=== PATIENT | male | born 1975 | race Caucasian/White ===

== ENCOUNTER 2018-02-02 12:42 | Emergency (ER) | payer BC ==
[2018-02-02 12:56] VITALS: TEMP 98.4; BMI 23.7
[2018-02-02] MEDS ORDERED: ONDANSETRON 4 MG/2 ML VIAL IVPUSH ONE (13:26)
[2018-02-02] MEDS ORDERED: FAMOTIDINE 20 MG/50 ML IVPB 20 MG/50 ML MG IVPB ONE ×2 (13:26→13:50)
[2018-02-02] MEDS ORDERED: morphine CARPU-JECT 4 MG/1 ML DISP.SYRIN IVPUSH ONE ×3 (13:26→16:26)
--- NOTE | 2018-02-02 13:37 | PDOC ---
History of Present Illness - General Chief Complaint: Chest Pain Stated Complaint: CHEST PAIN Time Seen by Provider: 02/02/18 13:04 - History of Present Illness Initial Comments: 02/02/18 13:27 42-year-old male with a history of anxiety presents to the emergency Department with 10 out of 10 pleuritic chest pain since waking up this morning. Patient reports she was in his usual state of health last night. He states this morning his 11lb cat was walking on his chest as she usually does, but today, she caused so much pain, it woke him up at 8am. He reports since then, the pain has been constant and he reports associated difficulty breathing due to the pain. He notes standing up as an alleviating factor and sitting down as a trigger for the pain. Pt reports feeling like he will pass out about 1 hour ago due to pain , but denies LOC. He reports similar pain one year ago which she states was diagnosed as "freak acid reflux." No treatments tried. Pt had a ?meckels diverticulum surgery 1 month ago and excision of a R axillary cyst 9 days ago at [facility]. Denies trauma. Denies fevers, chills, N/V/D, abd pain, headache , focal weakness or numbness. Past History - Past Medical History Allergies/Adverse Reactions: Allergies Allergy/AdvReac Type Severity Reaction Status Date / Time hydromorphone HCl Allergy Verified 02/02/18 12:43 [From Dilaudid] Home Medications: Ambulatory Orders Alprazolam [Xanax] 0.25 mg PO ASDIR PRN 04/23/16 Cephalexin [Keflex] 500 mg PO Q6H 02/02/18 Pantoprazole Sodium [Protonix -] 40 mg PO ONCE 02/02/18 Sulfamethoxazole/Trimethoprim [Bactrim Ds Tablet] 1 each PO BID 10 Days #20 tablet 02/02/18 COPD: No GI Disorders: Yes (MERKELS DIVERTICULUM) Psychiatric Problems: Yes (ANXIETY) - Surgical History Appendectomy: Yes GI Surgery: Yes (SMALL BOWEL RESECTION) - Suicide/Smoking/Psychosocial Hx Smoking History: Former smoker Have you smoked in the past 12 months: No Number of Cigarettes Smoked Daily: 2 If you are a former smoker, when did you quit?: OVER 1 YEAR AGO Information on smoking cessation initiated: No 'Breaking Loose' booklet given: 10/21/17 Hx Alcohol Use: No Drug/Substance Use Hx: No Substance Use Type: None Review of Systems - Review of Systems Comments:: 02/02/18 13:37 GENERAL/CONSTITUTIONAL: No fever or chills. No weakness. +lightheadedness HEAD, EYES, EARS, NOSE AND THROAT: No change in vision. No ear pain or discharge. No sore throat. GASTROINTESTINAL: No nausea, vomiting, diarrhea or constipation. GENITOURINARY: No dysuria, frequency, or change in urination. CARDIOVASCULAR: + chest pain and shortness of breath. RESPIRATORY: No cough, wheezing, or hemoptysis. MUSCULOSKELETAL: No joint or muscle swelling or pain. No neck or back pain. SKIN: No rash NEUROLOGIC: No headache, vertigo, loss of consciousness, or change in strength/ sensation. ENDOCRINE: No increased thirst. No abnormal weight change. HEMATOLOGIC/LYMPHATIC: No anemia, easy bleeding, or history of blood clots. ALLERGIC/IMMUNOLOGIC: No hives or skin allergy. *Physical Exam - Vital Signs Last Vital Signs Temp Pulse Resp BP Pulse Ox 98.4 F 83 18 138/83 96 02/02/18 12:42 02/02/18 12:42 02/02/18 12:42 02/02/18 12:42 02/02/18 12:42 - Physical Exam Comments: 02/02/18 13:48 GENERAL: Awake, alert, and fully oriented, in no acute distress HEAD: No signs of trauma EYES: PERRLA, EOMI, sclera anicteric, conjunctiva clear ENT: Auricles normal inspection, hearing grossly normal, nares patent, oropharynx clear without exudates. Moist mucosa NECK: Normal ROM, supple, no lymphadenopathy, JVD, or masses LUNGS: Breath sounds equal, clear to auscultation bilaterally. No wheezes, and no crackles HEART: Regular rate and rhythm, normal S1 and S2, no murmurs, rubs or gallops. + reproducible mid sternal ttp ABDOMEN: Soft, nontender, normoactive bowel sounds. No guarding, no rebound. No masses EXTREMITIES: Normal range of motion, no edema. No clubbing or cyanosis. No cords, erythema, or tenderness NEUROLOGICAL: Normal speech, cranial nerves intact, negative pronator drift, 5/ 5 strength in all 4 extremities, normal sensation to light touch in all 4 extremities, normal cerebellar exam, normal gait, normal reflexes and tone SKIN: Warm, Dry, normal turgor, no rashes or lesions noted. Heart Score/ECG Review #1 02/02/18 13:49 Twelve-lead EKG was performed and reviewed by me. Normal sinus rhythm, rate 93. Normal axis. Wavy baseline but no visible ST elevations or T-wave inversions. #2 02/03/18 07:38 Twelve-lead EKG was performed and reviewed by me. Normal sinus rhythm, rate 86. Normal axis and intervals. +early repolarization, no T-wave inversions ED Treatment Course - LABORATORY CBC & Chemistry Diagram: 02/02/18 13:12 02/02/18 13:12 - RADIOLOGY Radiology Studies Ordered: Category Date Time Status CHEST CTA [CT] Stat CT Scan 02/02/18 13:13 Ordered CHEST X-RAY PORTABLE* [RAD] Stat Radiology 02/02/18 13:13 Ordered Medical Decision Making - Medical Decision Making 02/02/18 13:50 42-year-old male with no significant past medical history presents emergency Department with pleuritic chest pain upon being woken up by his cat this morning. Vitals within normal limits. Exam with reproducible chest pain. Given recent procedures, PE is high on the differential. We'll obtain a CTA to rule out PE. We'll also check a troponin, chest x-ray, basic labs, treat pain and reassess. 02/02/18 15:05 Pt given 2nd dose morphine 4mg for pain control 02/02/18 16:38 Labs with leukocytosis to 14 of unclear etiology, possibly from recent cyst excision - Pt on keflex for cyst excision by surgeon CTA with no PE, although study was limited due to some motion artifact. Pt clinicially looks more comfortable with no hypoxia, tachycardia. Normal EKG. Low likelihood PE. CTA shows hyperplastic LN 0.7cm in mediastinum - informed pt of this finding, that it could represent cancer, and that it needs 3 month follow up with CT Case discussed with PMD Dr. Max Pt often anxious which may be contributing to symptoms Also states pt tested positive for MRSA recently which may be contributing to white count Will add bactrim in addition to keflex pt already taking She would like to see pt in the office this week Pt given toradol for pain control, will reassess. 02/02/18 18:04 Pt reports significant improvement in pain with toradol Trop 2 neg Likely MSK pain Pt requests DC home Advised to f/u with Dr. Max this week I discussed the physical exam findings, ancillary test results and final diagnoses with the patient. I answered all of the patient's questions. The patient was satisfied with the care received and felt comfortable with the discharge plan and treatment plan. The patient will call their primary care physician within 24 hours to arrange follow-up and will return to the Emergency Department with any new, persistent or worsening symptoms. *DC/Admit/Observation/Transfer Diagnosis at time of Disposition: Chest pain - Discharge Dispostion Disposition: HOME Condition at time of disposition: Stable Decision to Admit order: No - Prescriptions Prescriptions: Sulfamethoxazole/Trimethoprim [Bactrim Ds Tablet] 1 each PO BID 10 Days #20 tablet - Referrals Referrals: Radha Max MD [Primary Care Provider] - - Patient Instructions Printed Discharge Instructions: DI for Chest Pain Additional Instructions: As discussed, follow up with Dr. Max within 2-3 days. Also, discuss the lymph node on your CT scan with Dr. Max. Make sure your CT scan of your chest is repeated in 3 months to make sure this lymph node is not growing as this can represent something scary, like cancer. Take naproxen twice a day as needed for pain control. Take bactrim along with the keflex for your recent cyst surgery. Return to the emergency department if you have any new, worsening , or concerning symptoms. - Post Discharge Activity Forms/Work/School Notes: Back to Work - Attestations Physician Attestion: 02/02/18 18:10 I, Dr. Isabela Ortiz MD, attest that this document has been prepared under my direction and personally reviewed by me in its entirety. I further attest, that it accurately reflects all work, treatment, procedures and medical decision -making performed by me.
[2018-02-02] MEDS ORDERED: ONDANSETRON 4 MG/2 ML VIAL ONE (13:39)
[2018-02-02] MEDS ORDERED: morphine SULFATE 4 MG/ML VIAL ONE ×2 (13:39→15:07)
[2018-02-02 13:42] LABS: BASO % 0.6 % (0-2.0); EOS % 2.9 % (0-4.5); HEMATOCRIT 47.5 % (35.4-49); HEMOGLOBIN 15.5 GM/dl (11.7-16.9); LYMPH % 16.3 % (8-40); MCH 29.7 pg (25.7-33.7); MCHC 32.6 g/dl (32.0-35.9); MEAN CELL VOLUME 91.1 fl (80-96); MEAN PLT VOLUME 8.6 fl (7.5-11.1); MONO % 5.7 % (3.8-10.2); NEUT % 74.5 % (42.8-82.8); PLATELET COUNT 290 K/MM3 (134-434); RBC 5.22 M/mm3 (4.00-5.60); RDW 12.5 % (11.9-15.9); WHITE BLOOD COUNT 13.9 K/mm3 (4.0-10.8)
[2018-02-02 13:47] LABS: ALBUMIN 4.2 g/dl (3.5-5.0); ALK PHOS 103 U/L (32-92); ANION GAP 6 MMOL/L (8-16); BILIRUBIN,TOTAL 0.9 mg/dl (0.2-1.0); BLOOD UREA NITROGEN 13 mg/dl (7-18); CALCIUM 9.1 mg/dl (8.4-10.2); CHLORIDE 101 mmol/L (98-107); CO2 27 mmol/L (22-28); CREATININE 0.9 mg/dl (0.6-1.3); GLUCOSE,RANDOM 99 mg/dl (74-106); POTASSIUM 4.4 mmol/L (3.5-5.1); SGOT/AST 21 U/L (10-42); SGPT/ALT 27 U/L (10-40); SODIUM 134 mmol/L (136-145); TOT PROT 7.1 g/dl (6.4-8.3)
[2018-02-02] MEDS ORDERED: KETOROLAC TROMETHAMINE 15 MG/ML VIAL IVPUSH ONE (16:26)
[2018-02-02] MEDS ORDERED: SODIUM CHLORIDE 1,000 ML IV STA (16:26)
[2018-02-02] MEDS ORDERED: KETOROLAC TROMETHAMINE 15 MG/ML VIAL ONE (16:29)
[2018-02-02 18:03] VITALS: BP 126/78; PULSE 90
[2018-02-02] MEDS ORDERED: SULFAMETHOXAZOLE/TRIMETHOPRIM 800MG/160MG D.S. TABLET PO ONE (18:07)
[2018-02-02] MEDS ORDERED: SULFAMETHOXAZOLE/TRIMETHOPRIM 800MG/160MG D.S. TABLET ONE (18:09)
--- NOTE | 2018-02-03 12:18 | EKG ---
Test Reason : Blood Pressure : / mmHG Vent. Rate : 086 BPM Atrial Rate : 086 BPM P-R Int : 160 ms QRS Dur : 082 ms QT Int : 356 ms P-R-T Axes : 068 053 055 degrees QTc Int : 426 ms NORMAL SINUS RHYTHM POSSIBLE LEFT ATRIAL ENLARGEMENT EARLY REPOLARIZATION BORDERLINE ECG WHEN COMPARED WITH ECG OF 02-FEB-2018 12:51, NO SIGNIFICANT CHANGE WAS FOUND Confirmed by SABA PADRON MD ([id number]) on 02/03/2018 12:17:39 PM Referred By: DR CALLAHAN Confirmed By:SABA PADRON MD
--- NOTE | 2018-02-03 12:18 | EKG ---
Test Reason : Blood Pressure : / mmHG Vent. Rate : 095 BPM Atrial Rate : 095 BPM P-R Int : 168 ms QRS Dur : 082 ms QT Int : 350 ms P-R-T Axes : 056 049 047 degrees QTc Int : 439 ms NORMAL SINUS RHYTHM NORMAL ECG NO PREVIOUS ECGS AVAILABLE Confirmed by SABA PADRON MD ([id number]) on 02/03/2018 12:18:22 PM Referred By: PRABHA CALLAHAN Confirmed By:SABA PADRON MD
== END 2018-02-02 18:16 | disposition home or self-care (01) ==
LOC: SUPCPDRO 12:42 → FER 12:42
PROC: 3E0333Z Introduction of Anti-inflammatory into Peripheral Vein, Percutaneous Approach (ICD-10-PCS; principal; 2018-02-02)
PROC: 3E033NZ Introduction of Analgesics, Hypnotics, Sedatives into Peripheral Vein, Percutaneous Approach (ICD-10-PCS; 2018-02-02)
PROC: 3E033GC Introduction of Other Therapeutic Substance into Peripheral Vein, Percutaneous Approach (ICD-10-PCS; 2018-02-02)
PROC: 3E0337Z Introduction of Electrolytic and Water Balance Substance into Peripheral Vein, Percutaneous Approach (ICD-10-PCS; 2018-02-02)
DX: R07.9 Chest pain, unspecified (principal)
CPT/HCPCS: 36415; 71045-TC-FY; 71275-TC; 80053; 83880; 84484; 85025; 85730; 93005; 99285-25; J7030